=== PATIENT | female | born 1995 | race African-American/Black ===

== ENCOUNTER 2021-05-06 22:31 | Emergency (ER) | payer MEDICAID, OTHER ==
[~2021-05-06] VITALS: Ht 167.6 cm; Wt 60.3 kg
[2021-05-07 00:16] VITALS: BP 115/69
[2021-05-07] MEDS ORDERED: KETOROLAC TROMETH 60MG/2ML VIAL IM ONE (01:30)
== END 2021-05-07 02:24 | disposition home or self-care (01) ==
LOC: ER 22:31
DX: S90.31XA Contusion of right foot, initial encounter (principal); J45.909 Unspecified asthma, uncomplicated; X58.XXXA Exposure to other specified factors, initial encounter; Y93.89 Activity, other specified; Y92.89 Other specified places as the place of occurrence of the external cause; Y99.8 Other external cause status
CPT/HCPCS: 73630; 96372; 99283; J1885

== ENCOUNTER 2024-09-03 18:03 | Emergency (ER) | payer MEDICAID, OTHER ==
[~2024-09-03] VITALS: Ht 167.6 cm; Wt 60.9 kg
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
[2024-09-03 19:54] LABS: Basophils # (auto) 0 10 ^3/uL (0-0.2); Basophils % (auto) 0.4 % (0.0-2.0); Eosinophils # (auto) 0 10 ^3/uL (0-0.8); Eosinophils % (auto) 0.3 % (0.0-7.0); Hematocrit 35.3 % (36.0-46.0); Hemoglobin 11.3 g/dL (12.2-16.2); Lymphocytes # (auto) 1.7 10 ^3/uL (0.4-5.4); Lymphocytes % (auto) 15.2 % (10.0-50.0); Mean Corpuscular Hemoglobin 25.5 pg (28.0-32.0); Mean Corpuscular Volume 79.8 fL (80.0-100.0); Monocytes # (auto) 0.4 10 ^3/uL (0-1.3); Monocytes % (auto) 3.7 % (0.0-12.0); Neutrophils # (auto) 8.9 10 ^3/uL (1.6-8.6); Neutrophils % (auto) 80.4 % (37.0-80.0); Nucleated Red Blood Cells % 0.1 %; Platelet Count (auto) 278 10^3/uL (140-450); Red Blood Cells 4.43 10^6/uL (4.0-5.20)
[2024-09-03 20:01] LABS: Sodium 138 mmol/L (136-145)
[2024-09-03 20:02] LABS: Anion Gap 7 (5-15); Calcium 10.2 mg/dL (8.7-10.4); Carbon Dioxide 23 mmol/L (20-31)
[2024-09-03 20:07] LABS: BUN/Creatinine Ratio 9.9 (10.0-20.0)
[2024-09-03 20:08] LABS: Blood Urea Nitrogen 8 mg/dL (9-23); Chloride 108 mmol/L (98-107); Glucose 135 mg/dL (74-106); Potassium 3.3 mmol/L (3.5-5.1)
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
[2024-09-03] MEDS: ACETAMINOPHEN 325 MG TAB PO ONE (21:53)
[2024-09-03 21:56] VITALS: BP 109/68; PULSE 71; RESP 17; TEMP 98.7; O2SAT 98
== END 2024-09-03 23:22 | disposition home or self-care (01) ==
LOC: ER 18:03
DX: O9A.211 Injury, poisoning and certain other consequences of external causes complicating pregnancy, first trimester (principal); M54.50 Low back pain, unspecified; R10.30 Lower abdominal pain, unspecified; R07.81 Pleurodynia; J45.909 Unspecified asthma, uncomplicated; F17.200 Nicotine dependence, unspecified, uncomplicated; Z3A.01 Less than 8 weeks gestation of pregnancy; V89.2XXA Person injured in unspecified motor-vehicle accident, traffic, initial encounter; Y93.I9 Activity, other involving external motion; Y92.89 Other specified places as the place of occurrence of the external cause; Y99.8 Other external cause status
CPT/HCPCS: 36415; 76801; 76817; 80048; 84702; 85025